=== PATIENT | male | born 1945 | race Caucasian/White ===

== ENCOUNTER → 2020-12-30 | Outpatient (CLI) | payer MEDICARE ==
[2020-12-30 13:58] LABS: INR 0.9 (<1.2); Partial Thromboplastin Time 24.5 sec (22.0-30.0); Prothrombin Time 9.5 sec (9.0-12.0)
[2020-12-30 19:15] LABS: Basophils # (A) 0.08 X 10*3/uL (0.00-0.10); Basophils % (A) 0.8 %; Eosinophils # (A) 0.34 X 10*3/uL (0.04-0.35); Eosinophils % (A) 3.3 %; HCT 34.2 % (39.6-50.0); HGB 10.8 g/dL (13.0-17.0); Lymphocytes # (A) 2.85 X 10*3/uL (0.90-5.00); Lymphocytes % (A) 27.3 %; MCH 32.1 pg (27.0-32.0); MCHC 31.6 g/dL (32.0-37.0); MCV 101.8 fL (80.0-97.0); Monocytes # (A) 1.37 X 10*3/uL (0.20-1.00); Monocytes % (A) 13.1 %; Neutrophils # (A) 5.53 X 10*3/uL (1.80-7.70); Neutrophils % (A) 52.9 %; Platelet Count 263 X 10*3/uL (140-440); RBC 3.36 X 10*6/uL (4.40-5.60); RDW 17.3 % (11.5-14.5); WBC 10.44 X 10*3/uL (4.50-10.00)
[2020-12-30 22:08] LABS: African American GFR (CKD) 23.8 (60.0-200.0); Anion Gap 9.9 mmol/L (4.00-12.00); Carbon Dioxide 20.1 mmol/L (21.6-31.8); Non-African American GFR(CKD) 20.5 (60.0-200.0); Potassium 4.6 mmol/L (3.5-5.5)
== END | disposition home or self-care (01) ==
LOC: LABWHC1 12:53
PROVIDERS: ATTEND Internal Medicine
DX: R80.9 Proteinuria, unspecified (principal)
CPT/HCPCS: 36415; 80051; 82565; 84520; 85025; 85610; 85730

== ENCOUNTER 2021-01-01 08:47 | Day surgery (SDC) | payer MEDICARE ==
[2021-01-01] MEDS ORDERED: ALPRAZolam 0.25 MG TAB PO STA (09:38)
[2021-01-01 10:02] VITALS: PULSE 78; RESP 18; TEMP 97.9
[2021-01-01 10:38] VITALS: BP 160/79
== END 2021-01-01 10:30 | disposition home or self-care (01) ==
LOC: RADPROMAIN 08:47
PROVIDERS: ATTEND Internal Medicine
DX: R80.9 Proteinuria, unspecified (principal)
CPT/HCPCS: 36415; 86850; 86870; 86880; 86900; 86901; 86920

== ENCOUNTER → 2021-01-13 | Outpatient (CLI) | payer MEDICARE ==
[2021-01-13 13:49] LABS: Anisocytosis Slight; Basophils # (A) 0.1 k/uL (0-0.2); Basophils % (A) 1 %; Eosinophils # (A) 0.3 k/uL (0-0.7); Eosinophils % (A) 2 %; HCT 34.4 % (39.0-53.0); HGB 11.7 gm/dL (13.0-17.5); Hyperchromasia Slight; Lymphocytes # (A) 3.9 k/uL (1.0-4.8); Lymphocytes % (A) 34 %; MCH 32.6 pg (25.0-35.0); MCHC 34.1 g/dL (31.0-37.0); MCV 95.7 fL (80.0-100.0); Macrocytosis Slight; Mean Platelet Volume 7.9; Monocytes # (A) 0.7 k/uL (0-1.0); Monocytes % (A) 6 %; Neutrophils # (A) 6.2 k/uL (1.3-7.7); Neutrophils % (A) 53 %; Platelet Count 354 k/uL (150-450); Poikilocytosis Moderate; RBC 3.59 m/uL (4.30-5.90); RDW 17.6 % (11.5-15.5); WBC 11.6 k/uL (3.8-10.6)
[2021-01-13 14:02] LABS: Potassium 4.1 mmol/L (3.5-5.1)
[2021-01-13 14:07] LABS: INR 0.9 (<1.2); Partial Thromboplastin Time 24.2 sec (22.0-30.0); Prothrombin Time 9.5 sec (9.0-12.0)
== END | disposition home or self-care (01) ==
LOC: LABPAT 12:27
PROVIDERS: ATTEND Internal Medicine
DX: R80.9 Proteinuria, unspecified (principal)
CPT/HCPCS: 80051; 82565; 84520; 85025; 85610; 85730

== ENCOUNTER 2021-01-16 08:10 | Day surgery (SDC) | payer MEDICARE ==
[2021-01-16 08:59] VITALS: TEMP 98.4
[2021-01-16] MEDS ORDERED: DESMOPRESSIN ACETATE 32 MCG in SODIUM CHLORIDE 0.9% 50 ML IV ONE (09:15)
--- NOTE | 2021-01-16 13:25 | CT ---
EXAMINATION TYPE: CT biopsy renal LT DATE OF EXAM: 01/16/2021 HISTORY: Proteinuria COMPARISON: Maximal barrier technique was utilized, hand hygiene obtained with soap and water. The skin overlyin g a suitable path to the lower pole left kidney was localized using CT and the overlying skin was pre pped and draped. Lidocaine used for local anesthesia. A skin jarod made with a scalpel. Using CT gu idance, access was gained to the lower pole left renal cortex with a 18-gauge core needle were 17-gau ge guide. Core specimen submitted to cytology. Three pass(es) performed in all. Following the proc edure no immediate complications. The patient is discharged in stable condition. Hemostasis achiev ed. IMPRESSION: SUCCESSFUL CT GUIDED CORE BIOPSY left renal cortex. PATHOLOGY PENDING. THIS PROCEDURE WAS PERFORMED BY THE UNDERSIGNED.
[2021-01-16 14:43] VITALS: RESP 16
[2021-01-16 14:52] VITALS: BP 142/69; PULSE 78
== END 2021-01-16 14:25 | disposition home or self-care (01) ==
LOC: RADPROMAIN 08:10
PROVIDERS: ATTEND Internal Medicine
DX: R80.9 Proteinuria, unspecified (principal)
CPT/HCPCS: 86900; 86901; 86850; 86870; 86880; 50200; 77012; 36415; J2597

== ENCOUNTER 2021-09-08 11:33 | Day surgery (SDC) | payer MEDICARE ==
[~2021-09-08 11:33] MED LIST: ACETAMINOPHEN TAB 500 MG TAB PO PRN; DEXAMETHASONE SOD PHOSPHATE 4 MG/ML 1 ML VIAL IV ONE; HEPARIN SODIUM,PORCINE/PF 5,000 UNIT/0.5 ML SYRINGE SQ PRN; LACTATED RINGERS 1,000 ML IV SCH; LIDOCAINE 1% (10MG/ML) FOR IV START INTRADERMA PRN; ONDANSETRON 4 MG/2 ML VIAL IVP ONE; ONDANSETRON 4 MG/2 ML VIAL IVP PRN; Pre Op ABX Message 1 EACH MISC MISCELLANE ONE; fentaNYL (PF) 50 MCG/ML 2 ML AMP IV PRN
[2021-09-08] MEDS ORDERED: SODIUM CHLORIDE 0.9% 1,000 ML IV ONE (12:51)
--- NOTE | 2021-09-08 12:55 | P.GSHP ---
History of Present Illness H&P Date: 09/15/21 Chief Complaint: Renal failure 76-year-old male known to our service. Patient was last seen a few months ago. Patient with progressive renal failure. GFR down to 13. Patient is having more symptoms from his renal failure he states. No significant surgical history. He has not been dialyzed thus far. 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 History of Any Multi-Drug Resistant Organisms: None Reported Past Surgical History: Heart Catheterization With Stent, Joint Replacement, Tonsillectomy Additional Past Surgical History / Comment(s): CATARACT SX-LENS IMPLANTS, BONE MARROW TRANSPLANT, PARTIAL LT KNEE REPLACEMENT, colonscopy Additional Past Anesthesia/Blood Transfusion Reaction / Comment(s): PAST BLOOD TRANSFUSIONS no issues Date of Last Stent Placement:: unknown 40 yrs ago Past Psychological History: No Psychological Hx Reported Smoking Status: Former smoker Past Alcohol Use History: None Reported Additional Past Alcohol Use History / Comment(s): STARTED AT AGE 14, 1PPD, QUIT 2011 Past Drug Use History: None Reported - Past Family History Father Family Medical History: Cancer Additional Family Medical History / Comment(s): AT AGE 42 LUNG CA Mother Family Medical History: Cancer Additional Family Medical History / Comment(s): AT AGE 84- BRAIN CA. Medications and Allergies Home Medications Medication Instructions Recorded Confirmed Type Aspirin 81 mg PO DAILY 12/07/13 09/05/21 History Metoprolol Succinate (ER) [Toprol 100 mg PO DAILY 12/07/13 09/05/21 History XL] Pravastatin Sodium 40 mg PO DAILY 12/07/13 09/05/21 History amLODIPine 10 mg PO DAILY 12/07/13 09/05/21 History Allopurinol [Zyloprim] 300 mg PO DAILY 12/24/20 09/05/21 History Ergocalciferol [Vitamin D2 (1250 1,250 mcg PO QMONTHLY 12/24/20 09/05/21 History Mcg = [id number] Iu)] hydrALAZINE HCL [Apresoline] 100 mg PO TID 12/24/20 09/05/21 History Folic Acid 1 mg PO DAILY 01/10/21 09/05/21 History Furosemide [Lasix] 20 mg PO BID 01/10/21 09/05/21 History Germania(Unkown Dose) 1 dose PO DAILY PRN 09/05/21 History Calcium Acetate 667 mg PO DAILY 09/05/21 09/05/21 History Montelukast [Singulair] 10 mg PO DAILY 09/05/21 09/05/21 History Omeprazole 20 mg PO HS 09/05/21 09/05/21 History Allergies Allergy/AdvReac Type Severity Reaction Status Date / Time vancomycin Allergy Rash/Hives Verified 09/04/21 15:59 Surgical - Exam Physical exam: General: Well-developed, well-nourished HEENT: Normocephalic, sclerae nonicteric Abdomen: Nontender, nondistended Extremities: No edema Neuro: Alert and oriented Assessment and Plan (1) Renal failure Narrative/Plan: 76-year-old male with renal failure. We'll proceed with peritoneal dialysis catheter placement. Risks of bleeding, infection, scarring, catheter malfunction, bladder and bowel injury, need for laparoscopy, anesthesia related complications reviewed. He understands and wishes to proceed. Current Visit: Yes Status: Acute Code(s): N19 - UNSPECIFIED KIDNEY FAILURE SNOMED Code(s): 67289711
[2021-09-08 13:03] LABS: Albumin 4.2 g/dL (3.5-5.0); Total Bilirubin 0.5 mg/dL (0.2-1.3); Total Protein 6.8 g/dL (6.3-8.2)
[2021-09-08 13:08] LABS: Potassium 5.2 mmol/L (3.5-5.1)
[2021-09-08 13:15] LABS: Anisocytosis Slight; Basophils # (A) 0.1 k/uL (0-0.2); Basophils % (A) 1 %; Eosinophils # (A) 0.4 k/uL (0-0.7); Eosinophils % (A) 3 %; HCT 34.1 % (39.0-53.0); HGB 10.5 gm/dL (13.0-17.5); Lymphocytes # (A) 4.4 k/uL (1.0-4.8); Lymphocytes % (A) 37 %; MCH 29.6 pg (25.0-35.0); MCHC 30.8 g/dL (31.0-37.0); MCV 96.2 fL (80.0-100.0); Monocytes # (A) 0.8 k/uL (0-1.0); Monocytes % (A) 7 %; Neutrophils % (A) 49 %; Platelet Count 249 k/uL (150-450); RBC 3.54 m/uL (4.30-5.90); RDW 16.6 % (11.5-15.5); WBC 12.1 k/uL (3.8-10.6)
[2021-09-08] MEDS ORDERED: MIDAZOLAM 2 MG/2 ML VIAL ONE (13:19)
[2021-09-08] MEDS ORDERED: LIDOCAINE 2% INJ 20 MG/ML (2 ML VIAL) ONE (13:19)
[2021-09-08] MEDS ORDERED: PROPOFOL 10 MG/ML 20 ML VIAL IV ONE (13:19)
[2021-09-08] MEDS ORDERED: fentaNYL (PF) 50 MCG/ML 2 ML AMP ONE (13:19)
[2021-09-08] MEDS ORDERED: BUPIVACAINE (PF) 0.5% 30 ML VIAL SQ ONE ×2 (13:27→13:41)
[2021-09-08] MEDS ORDERED: MINERAL OIL 1 APPLIC/ML OIL MISCELLANE ONE ×2 (13:28→13:41)
[2021-09-08] MEDS ORDERED: NALOXONE 0.4 MG/ML 1 ML VIAL IV PRN (14:04)
[2021-09-08] MEDS ORDERED: traMADol 50 MG TAB PO PRN (14:04)
--- NOTE | 2021-09-08 14:06 | P.OP ---
Date of Procedure: 09/08/21 Procedure(s) Performed: PREOPERATIVE DIAGNOSIS: Renal failure POSTOPERATIVE DIAGNOSIS: Same PROCEDURE: Peritoneal dialysis catheter insertion SURGEON: Catherine EBL: Minimal ANESTHESIA: Sedation plus local COMPLICATIONS: None OPERATIVE PROCEDURE: The patient was placed in the operative table in the supine position. The abdomen was prepped and draped in usual sterile fashion. A small vertical incision was made in the right periumbilical location. Dissection down through the subcutaneous tissues took place using electrocautery. The anterior rectus was divided vertically using the scalpel. The rectus was bluntly. The posterior rectus was visualized. An 0 Vicryl pursestring was placed. A small opening in the posterior rectus fascia and peritoneum took place using a Metzenbaum scissors. There were no adhesions to the suture that was placed. The pigtail catheter was advanced into the pelvis over a stylette. No resistance was met. The inner cuff was secured to the fascia using the 0 Vicryl pursestring that was placed. The catheter was tunneled to an exit site in the right lateral lower quadrant. The catheter was connected to the 1 L bag of saline and approximated 800 mL of saline was easily introduced into the peritoneal cavity. The fluid was then allowed to evacuate. The majority of the fluid was returned. The anterior rectus fascia was then reapproximated using a running 0 Vicryl stitch. The subcutaneous tissues reprepped using 3-0 Vicryl sutures and the skin using 4-0 Monocryl sutures. The outpatient dialysis adapter was applied to the end of the catheter. Sterile dressings were then applied after skin glue was placed over the incision. DISPOSITION: Stable to recovery room
[2021-09-08 14:20] VITALS: TEMP 96.8
[2021-09-08 15:45] VITALS: BP 158/80; PULSE 62; RESP 16
== END 2021-09-08 16:00 | disposition home or self-care (01) ==
LOC: OR 11:33
PROVIDERS: ATTEND Surgery
DX: N19 Unspecified kidney failure (principal); I25.10 Atherosclerotic heart disease of native coronary artery without angina pectoris; E78.5 Hyperlipidemia, unspecified; I10 Essential (primary) hypertension; K76.9 Liver disease, unspecified; M10.9 Gout, unspecified; M19.90 Unspecified osteoarthritis, unspecified site; C95.91 Leukemia, unspecified, in remission; D64.9 Anemia, unspecified; E66.9 Obesity, unspecified; Z68.32 Body mass index [BMI] 32.0-32.9, adult; Z94.81 Bone marrow transplant status; Z87.01 Personal history of pneumonia (recurrent); Z86.19 Personal history of other infectious and parasitic diseases; Z98.49 Cataract extraction status, unspecified eye; Z96.1 Presence of intraocular lens; Z96.652 Presence of left artificial knee joint; Z87.891 Personal history of nicotine dependence; Z79.82 Long term (current) use of aspirin; Z79.899 Other long term (current) drug therapy; Z88.1 Allergy status to other antibiotic agents; Z98.890 Other specified postprocedural states; Z83.3 Family history of diabetes mellitus; Z80.1 Family history of malignant neoplasm of trachea, bronchus and lung; Z82.49 Family history of ischemic heart disease and other diseases of the circulatory system; Z80.8 Family history of malignant neoplasm of other organs or systems
CPT/HCPCS: 80053; 85025; 49421; C1752; J2250; J1100; J2405; J3010; J2704; J1644; J2001

== ENCOUNTER → 2022-04-17 | Outpatient (CLI) | payer MEDICARE ==
--- NOTE | 2022-04-17 11:14 | CTL ---
EXAMINATION TYPE: CT Low Dose Lung DATE OF EXAM ORDERED: 04/17/2022 HISTORY: . Lung cancer screening CT DLP: 143.[address] CTDI: 3.70 mGy Automated exposure control for dose reduction was used. SCREENING VISIT: COMPARISON: 12/10/2013 TECHNIQUE: Low dose computed tomography scan was performed through the chest at 1 mm thick sections a nd reconstructed images in multiple planes at 1 mm and [address] DIAGNOSTIC QUALITY: Satisfactory FINDINGS: LUNGS: The lungs are clear and free of infiltrate or atelectasis. There is a calcified nodule seen superior segment right lower lobe measuring 2 mm compatible small gr anuloma axial image 146. There is a linear calcific density seen in the right lung apex axial image 76 measuring 6 mm. There is a 2 mm calcified granuloma right upper lobe axial image 116. Mild emphysematous changes seen. Minimal posterior groundglass changes most typical of atelectasis. There is atherosclerotic change in the aorta, cardiomegaly and coronary artery dense calcification. Incidental note is made of small amount of ascites adjacent to the liver. A fat-containing density se en within gastric body could represent a small lipoma. This very mild interlobular septal thickening at the lung bases suggestive of mild chronic interstitial lung disease or fibrosis Pleural effusion or pneumothorax. Thoracic aorta is of normal caliber. The heart is not enlarged. No evidence for mediastinal mass or a denopathy. Calcified lymph nodes seen. IMPRESSION: 1. COPD with subcentimeter calcified benign-appearing pulmonary nodules most typical of granuloma. 2. There is a small amount of ascites correlate clinically for etiology. 3. Coronary artery calcification. 4. 2.1 cm fat attenuation within the gastric body could represent gastric content or gastric lipoma. CT LUNG RAD AND CT CHEST RECOMMENDATION: Lung-Rad 2 Benign Appearance or Behavior: Continue annual sc reening with LDCT in 12 months. S Modifier (other clinically significant findings): S
== END | disposition home or self-care (01) ==
LOC: RADCTMAIN 09:08
PROVIDERS: ATTEND Family Medicine
DX: Z12.2 Encounter for screening for malignant neoplasm of respiratory organs (principal); J44.9 Chronic obstructive pulmonary disease, unspecified; I25.10 Atherosclerotic heart disease of native coronary artery without angina pectoris; R18.8 Other ascites; Z87.891 Personal history of nicotine dependence
CPT/HCPCS: 71271

== ENCOUNTER → 2022-09-23 | Outpatient (CLI) | payer MEDICARE ==
--- NOTE | 2022-09-23 19:37 | CT ---
EXAMINATION TYPE: CT sinus wo con DATE OF EXAM: 09/23/2022 COMPARISON: None HISTORY: 77-year-old male K32.9, chronic sinusitis CT DLP: 709.80 mGycm Automated exposure control for dose reduction was used. TECHNIQUE: Noncontrast axial views of the paranasal sinuses were obtained. Coronal and sagittal refor matted images were obtained. FINDINGS: PARANASAL SINUSES: Scattered mild to moderate mucosal thickening throughout the ethmoid air cells. Air-fluid levels within the bilateral maxillary sinuses. Sphenoid and frontal sinuses are well pneumatized. Reactive damion- osteogenesis is not seen. There is no destruction of the osseous kowalski of the paranasal sinuses. THE NASAL CAVITY: The osteomeatal complexes are patent. There is some rightward nasal septal deviation. The imaged brain shows mild cerebral cortical volume loss and mild to moderate periventricular burden of chronic small vessel ischemic disease. The orbits are normal in appearance. Mastoid air cells and middle ear cavities are well pneumatized. Reformatted images confirm above findings. IMPRESSION: 1. Mild to moderate chronic ethmoid and maxillary sinus disease but with superimposed bilateral maxil fredis sinus air fluid levels which can be seen with acute sinusitis. 2. Rightward nasal septal deviation.
== END | disposition home or self-care (01) ==
LOC: RADCTMAIN 14:18
PROVIDERS: ATTEND Family Medicine
DX: S02.92XB Unspecified fracture of facial bones, initial encounter for open fracture (principal); J32.2 Chronic ethmoidal sinusitis; J32.0 Chronic maxillary sinusitis; J34.2 Deviated nasal septum
CPT/HCPCS: 70486

== ENCOUNTER 2022-11-13 06:23 | Emergency (ER) | payer MEDICARE ==
[2022-11-13] MEDS ORDERED: PANTOPRAZOLE 40 MG/10 ML VIAL IVP STA (06:50)
--- NOTE | 2022-11-13 06:51 | ED ---
GI Bleed HPI - General Chief complaint: GI Bleed Stated complaint: Rectal Bleeding Time Seen by Provider: 11/13/22 06:27 Source: patient, RN notes reviewed Mode of arrival: wheelchair Limitations: no limitations - History of Present Illness Initial comments: This is a 77-year-old male who presents to the emergency department for rectal bleeding. Patient states that he felt like he needed to have a bowel movement this morning around midnight, and when he got up to use the bathroom, he noticed bright red blood in the toilet. States that this has since persisted all morning. Reports generalized lower abdominal pain. Denies any history of rectal bleeds. He felt nauseous earlier, however that has since resolved. He does report feeling very weak, lightheaded, and drowsy. Patient is on peritoneal dialysis, which he started a year ago. States that he does this at night. Not taking any blood thinners. Denies any fevers, chills, sore throat, cough, dyspnea, chest pain, palpitations, vomiting, diarrhea, back pain, or headaches. MD complaint: gross hematochezia - Related Data Home Medications Medication Instructions Recorded Confirmed Metoprolol Succinate (ER) [Toprol 100 mg PO DAILY 12/07/13 11/13/22 XL] Pravastatin Sodium 40 mg PO HS 12/07/13 11/13/22 amLODIPine 10 mg PO DAILY 12/07/13 11/13/22 Calcium Acetate 667 mg PO AC-TID 09/05/21 11/13/22 Montelukast [Singulair] 10 mg PO HS 09/05/21 11/13/22 Omeprazole 20 mg PO DAILY 09/05/21 11/13/22 Fluticasone/Umeclidin/Vilanter 1 puff INHALATION RT-DAILY 11/13/22 11/13/22 [Trelegy Ellipta 200-62.5-25] Sodium Bicarbonate Tab 650 mg PO BID 11/13/22 11/13/22 Torsemide [Demadex] 40 mg PO DAILY 11/13/22 11/13/22 allopurinoL 100 mg PO DAILY 11/13/22 11/13/22 hydrALAZINE HCL [Apresoline] 50 mg PO BID 11/13/22 11/13/22 Allergies Allergy/AdvReac Type Severity Reaction Status Date / Time vancomycin Allergy Rash/Hives Verified 08/11/23 08:44 Review of Systems ROS Statement: Those systems with pertinent positive or pertinent negative responses have been documented in the HPI. ROS Other: All systems not noted in ROS Statement are negative. 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 peritineal dialysis, History of Any Multi-Drug Resistant Organisms: None Reported Past Surgical History: Heart Catheterization With Stent, Joint Replacement, Tonsillectomy Additional Past Surgical History / Comment(s): CATARACT SX-LENS IMPLANTS, BONE MARROW TRANSPLANT, PARTIAL LT KNEE REPLACEMENT, colonscopy Additional Past Anesthesia/Blood Transfusion Reaction / Comment(s): PAST BLOOD TRANSFUSIONS no issues Date of Last Stent Placement:: unknown 40 yrs ago Past Psychological History: No Psychological Hx Reported Smoking Status: Former smoker Past Alcohol Use History: None Reported Past Drug Use History: None Reported - Past Family History Father Family Medical History: Cancer Additional Family Medical History / Comment(s): AT AGE 42 LUNG CA Mother Family Medical History: Cancer Additional Family Medical History / Comment(s): AT AGE 84- BRAIN CA. General Exam Limitations: no limitations General appearance: alert, in no apparent distress Head exam: Present: atraumatic, normocephalic, normal inspection Respiratory exam: Present: normal lung sounds bilaterally. Absent: respiratory distress, wheezes, rales, rhonchi, stridor Cardiovascular Exam: Present: regular rate, normal rhythm, normal heart sounds. Absent: systolic murmur, diastolic murmur, rubs, gallop, clicks Rectal exam: Present: other (There is no active bleeding from the rectum, however the buttocks is diffusely covered in fresh blood suggestive of recent ac tive bleeding. 1 external hemorrhoid) Neurological exam: Present: alert, oriented X3, CN II-XII intact Psychiatric exam: Present: normal affect, normal mood Skin exam: Present: warm, dry, intact, normal color. Absent: rash Course Vital Signs 11/13/22 11/13/22 11/13/22 06:28 06:46 06:51 Temperature 98.2 F Pulse Rate 93 78 Respiratory 18 18 Rate Blood Pressure 83/56 82/53 96/55 O2 Sat by Pulse 98 94 L Oximetry 11/13/22 11/13/22 11/13/22 07:00 07:13 07:30 Temperature Pulse Rate 75 74 59 L Respiratory 18 16 18 Rate Blood Pressure 82/56 94/47 97/46 O2 Sat by Pulse 97 100 97 Oximetry 11/13/22 11/13/22 11/13/22 07:46 08:21 09:03 Temperature Pulse Rate 76 82 89 Respiratory 16 16 16 Rate Blood Pressure 104/61 100/69 103/64 O2 Sat by Pulse 97 94 L 97 Oximetry 11/13/22 10:03 Temperature Pulse Rate 86 Respiratory 16 Rate Blood Pressure 94/59 O2 Sat by Pulse 96 Oximetry Medical Decision Making - Medical Decision Making This is a 77-year-old male who presents to the emergency department for rectal bleeding. Was pt. sent in by a medical professional or institution? @ -No Did you speak to anyone other than the patient for history? @ -No Did you review nursing and triage notes? @ -Yes, and I agree, it is accurate with regards to the patient's symptoms. Were old charts reviewed? @ -No Differential Diagnosis? @ -Differential GI Bleed: Esophageal varices, aortoenteric fistula, [place], gastritis, peptic ulcer disease, diverticulosis, inflammatory bowel disease, hemorrhoids, fissure, colitis, malignancy, Meckels diverticulum, this is not meant to be an all- inclusive list. EKG interpreted by me (3pts min.)? @ -EKG interpreted by me demonstrating the following: Sinus rhythm. Ventricular rate 78 beats per minute, SC interval 178 ms, QRS duration 91 ms, QTC 448 ms. X-rays interpreted by me (1pt min.)? @ -Not obtained CT interpreted by me (1pt min.)? @ -Not obtained U/S interpreted by me (1pt. min.)? @ -Not obtained What testing was considered but not performed? (CT, X-rays, U/S, labs)? Why? @ -None What meds were considered but not given? Why? @ -None Did you discuss the management of the patient with other professionals? @ -Yes, Dr. Davis, general surgery who advised transfer for GI services. Dr. Griffiths, GI at [facility], who is agreeable to transfer. Dr. Smith is the accepting ED provider. Did you reconcile home meds? @ -No Was smoking cessation discussed for >3mins.? @ -No Was critical care preformed (if so, how long)? @ -No Were there social determinants of health that impacted care today? How? (Homelessness, low income, unemployed, alcoholism, drug addiction, transportation, low edu. Level, literacy, decrease access to med. care, [facility], rehab)? @ -No Was there de-escalation of care discussed even if they declined? (Discuss DNR or withdrawal of care, Hospice)? @ -No What co-morbidities impacted this encounter? (DM, HTN, Smoking, COPD, CAD, Cancer, CVA, Hep., AIDS, mental health diagnosis, sleep apnea, morbid obesity)? @ -CAD, HTN, HLD, renal disease Was patient admitted / discharged? @ -Transferred. Patient was fairly hypotensive in the emergency department with most of his blood pressures in the 80s/50s. He did have some fresh blood on exam and on a gloved finger during digital rectal exam. Initial hemoglobin was 10.7 and the patient also had leukocytosis. Renal failure is consistent with the patient being on peritoneal dialysis. Given the progressive hypotension, he was given a liter bolus of IV fluids. Blood pressure did improve into the 100s systolically, however after about an hour, it started to go back down into the 80s to 90s. We rechecked his hemoglobin after 2 hours, and it was found to be 8.9. Patient also started to have active bleeding again. Given the decreased hemoglobin with associated hypotension, we were going to transfuse 1 unit of PRBCs, however the patient had antibodies and it was going to be hours before he could receive the blood. He was subsequently transferred before receiving the unit. I spoke with Dr. Davis, general surgery, who advised transferring the patient out for higher level of care, as we do not have gastroenterology available at our facility. Case discussed with Dr. Griffiths, GI at [facility], who is agreeable to transfer. Dr. Smith is the accepting provider for ED to ED transfer. Undiagnosed new problem with uncertain prognosis? @ -None Drug Therapy requiring intensive monitoring for toxicity (Heparin, Nitro, Insulin, Cardizem)? @ -None Were any procedures done? @ -None Diagnosis/symptom? @ -GI bleed, hypotension Acute, or Chronic, or Acute on Chronic? @ -Acute Uncomplicated (without systemic symptoms) or Complicated (systemic symptoms)? @ -Complicated Side effects of treatment? @ -None Exacerbation, Progression, or Severe Exacerbation] @ -Not applicable Poses a threat to life or bodily function? @ -Yes This case was discussed in detail with the attending ED physician, Dr. Ulrich. Pr esentation, findings, and treatment plan discussed in detail as well. - Lab Data Result diagrams: 11/13/22 08:57 11/13/22 06:46 Lab Results 11/13/22 11/13/22 11/13/22 Range/Units 06:46 06:46 06:46 WBC 17.4 H (3.8-10.6) k/uL RBC 3.33 L (4.30-5.90) m/uL Hgb 10.7 L (13.0-17.5) gm/dL Hct 32.4 L (39.0-53.0) % MCV 97.3 (80.0-100.0) fL MCH 32.0 (25.0-35.0) pg MCHC 32.9 (31.0-37.0) g/dL RDW 16.1 H (11.5-15.5) % Plt Count 345 (150-450) k/uL MPV 7.8 Neutrophils % (Manual) 38 % Band Neuts % (Manual) 4 % Lymphocytes % (Manual) 45 % Monocytes % (Manual) 10 % Eosinophils % (Manual) 1 % Basophils % (Manual) % Metamyelocytes % 2 % Myelocytes % 2 % Neutrophils # (Manual) 7.30 (1.3-7.7) k/uL Lymphocytes # (Manual) 7.83 H (1.0-4.8) k/uL Monocytes # (Manual) 1.74 H (0-1.0) k/uL Eosinophils # (Manual) 0.17 (0-0.7) k/uL Basophils # (Manual) (0-0.2) k/uL Metamyelocytes # (Man) 0.35 H (0) k/uL Myelocytes # (Manual) 0.35 H (0) k/uL Nucleated RBCs 1 H (0-0) /100 WBC Manual Slide Review Performed Polychromasia Present Hypochromasia Slight Poikilocytosis (manual Present Anisocytosis Slight Macrocytosis Slight [place] Bodies Present PT 9.8 (9.0-12.0) sec INR 0.9 (<1.2) APTT 25.6 (22.0-30.0) sec Sodium 142 (137-145) mmol/L Potassium 4.6 (3.5-5.1) mmol/L Chloride 105 (98-107) mmol/L Carbon Dioxide 23 (22-30) mmol/L Anion Gap 14 mmol/L BUN 52 H (9-20) mg/dL Creatinine 5.71 H (0.66-1.25) mg/dL Est GFR (CKD-EPI)AfAm 10 (>60 ml/min/1.73 sqM) Est GFR (CKD-EPI)NonAf 9 (>60 ml/min/1.73 sqM) Glucose 180 H (74-99) mg/dL Calcium 8.7 (8.4-10.2) mg/dL Magnesium 1.5 L (1.6-2.3) mg/dL Total Bilirubin 0.3 (0.2-1.3) mg/dL AST 19 (17-59) U/L ALT 19 (4-49) U/L Alkaline Phosphatase 92 (38-126) U/L Total Protein 5.9 L (6.3-8.2) g/dL Albumin 3.5 (3.5-5.0) g/dL Blood Type Blood Type Recheck Bld Type Recheck Status Antibody Screen Antibody Identification Direct Antiglob Test Crossmatch Spec Expiration Date 11/13/22 11/13/22 Range/Units 06:46 08:57 WBC 15.1 H (3.8-10.6) k/uL RBC 2.80 L (4.30-5.90) m/uL Hgb 8.9 L D (13.0-17.5) gm/dL Hct 27.4 L (39.0-53.0) % MCV 98.0 (80.0-100.0) fL MCH 31.7 (25.0-35.0) pg MCHC 32.4 (31.0-37.0) g/dL RDW 16.2 H (11.5-15.5) % Plt Count 316 (150-450) k/uL MPV 8.0 Neutrophils % (Manual) 57 % Band Neuts % (Manual) 4 % Lymphocytes % (Manual) 28 % Monocytes % (Manual) 8 % Eosinophils % (Manual) 1 % Basophils % (Manual) 1 % Metamyelocytes % 3 % Myelocytes % 1 % Neutrophils # (Manual) 9.20 H (1.3-7.7) k/uL Lymphocytes # (Manual) 4.23 (1.0-4.8) k/uL Monocytes # (Manual) 1.21 H (0-1.0) k/uL Eosinophils # (Manual) 0.15 (0-0.7) k/uL Basophils # (Manual) 0.15 (0-0.2) k/uL Metamyelocytes # (Man) 0.45 H (0) k/uL Myelocytes # (Manual) 0.15 H (0) k/uL Nucleated RBCs 1 H (0-0) /100 WBC Manual Slide Review Performed Polychromasia Present Hypochromasia Slight Poikilocytosis (manual Present Anisocytosis Slight Macrocytosis Slight [place] Bodies Present PT (9.0-12.0) sec INR (<1.2) APTT (22.0-30.0) sec Sodium (137-145) mmol/L Potassium (3.5-5.1) mmol/L Chloride (98-107) mmol/L Carbon Dioxide (22-30) mmol/L Anion Gap mmol/L BUN (9-20) mg/dL Creatinine (0.66-1.25) mg/dL Est GFR (CKD-EPI)AfAm (>60 ml/min/1.73 sqM) Est GFR (CKD-EPI)NonAf (>60 ml/min/1.73 sqM) Glucose (74-99) mg/dL Calcium (8.4-10.2) mg/dL Magnesium (1.6-2.3) mg/dL Total Bilirubin (0.2-1.3) mg/dL AST (17-59) U/L ALT (4-49) U/L Alkaline Phosphatase (38-126) U/L Total Protein (6.3-8.2) g/dL Albumin (3.5-5.0) g/dL Blood Type A Negative Blood Type Recheck A Neg Bld Type Recheck Status No Antibody Screen POSITIVE Antibody Identification Anti-D Direct Antiglob Test Negative Crossmatch See Detail Spec Expiration Date 11/16/20222345 Disposition Clinical Impression: GI bleed, Hypotension Disposition: OTHER INSTITUTION NOT DEFINED Referrals: Malachi Hager MD [Primary Care Provider] - 1-2 days - Out of Hospital Transfer - Req. Specs Out of Hospital Transfer - Requested Specifics: Other [facility] ([facility]
[2022-11-13 07:02] LABS: Anisocytosis Slight; HCT 32.4 % (39.0-53.0); HGB 10.7 gm/dL (13.0-17.5); Hypochromasia Slight; MCHC 32.9 g/dL (31.0-37.0); MCV 97.3 fL (80.0-100.0); Macrocytosis Slight; Mean Platelet Volume 7.8; Platelet Count 345 k/uL (150-450); RBC 3.33 m/uL (4.30-5.90); RDW 16.1 % (11.5-15.5)
[2022-11-13 07:06] LABS: ALT 19 U/L (4-49); AST 19 U/L (17-59); African American GFR (CKD) 10 (>60 ml/min/1.73 sqM); Albumin 3.5 g/dL (3.5-5.0); Alkaline Phosphatase 92 U/L (38-126); Anion Gap 14 mmol/L; Blood Urea Nitrogen 52 mg/dL (9-20); Calcium 8.7 mg/dL (8.4-10.2); Carbon Dioxide 23 mmol/L (22-30); Chloride 105 mmol/L (98-107); Glucose 180 mg/dL (74-99); Magnesium 1.5 mg/dL (1.6-2.3); Non-African American GFR(CKD) 9 (>60 ml/min/1.73 sqM); Potassium 4.6 mmol/L (3.5-5.1); Sodium 142 mmol/L (137-145); Total Bilirubin 0.3 mg/dL (0.2-1.3); Total Protein 5.9 g/dL (6.3-8.2)
[2022-11-13 07:16] LABS: INR 0.9 (<1.2); Partial Thromboplastin Time 25.6 sec (22.0-30.0); Prothrombin Time 9.8 sec (9.0-12.0)
[2022-11-13] MEDS ORDERED: SODIUM CHLORIDE 0.9% 1,000 ML IV STA (07:42)
[2022-11-13 07:46] VITALS: RESP 16
[2022-11-13 08:49] LABS: Band Neutrophils % 4 %; Eosinophils # (M) 0.17 k/uL (0-0.7); Lymphocytes # (M) 7.83 k/uL (1.0-4.8); Metamyelocytes # (M) 0.35 k/uL (0); Metamyelocytes % 2 %; Monocytes # (M) 1.74 k/uL (0-1.0); Myelocytes # (M) 0.35 k/uL (0); Myelocytes % 2 %; Neutrophils % (M) 38 %; Nucleated Red Blood Cells 1 /100 WBC (0-0); Total Cells Counted 200; WBC 17.4 k/uL (3.8-10.6)
[2022-11-13 08:57] LABS: Polychromasia Present
[2022-11-13 08:59] LABS: Howell-Jolly Bodies Present; Poikilocytosis (M) Present
[2022-11-13 09:15] LABS: Anisocytosis Slight; HCT 27.4 % (39.0-53.0); HGB 8.9 gm/dL (13.0-17.5); Hypochromasia Slight; MCH 31.7 pg (25.0-35.0); MCHC 32.4 g/dL (31.0-37.0); Macrocytosis Slight; Platelet Count 316 k/uL (150-450); RDW 16.2 % (11.5-15.5)
[2022-11-13] MEDS ORDERED: MORPHINE SULFATE 4 MG/ML SYRINGE IVP STA (09:25)
[2022-11-13 10:03] VITALS: BP 94/59
[2022-11-13 10:58] LABS: Band Neutrophils % 4 %; Basophils # (M) 0.15 k/uL (0-0.2); Eosinophils # (M) 0.15 k/uL (0-0.7); Lymphocytes # (M) 4.23 k/uL (1.0-4.8); Metamyelocytes # (M) 0.45 k/uL (0); Metamyelocytes % 3 %; Monocytes # (M) 1.21 k/uL (0-1.0); Myelocytes # (M) 0.15 k/uL (0); Myelocytes % 1 %; Neutrophils % (M) 57 %; Nucleated Red Blood Cells 1 /100 WBC (0-0); Total Cells Counted 200; WBC 15.1 k/uL (3.8-10.6)
[2022-11-13 11:02] LABS: Howell-Jolly Bodies Present; Poikilocytosis (M) Present; Polychromasia Present
[2022-11-13 12:06] VITALS: PULSE 85; TEMP 97.8
== END 2022-11-13 12:05 | disposition other institution (70) ==
LOC: EC 06:23
DX: K92.2 Gastrointestinal hemorrhage, unspecified (principal); I95.9 Hypotension, unspecified; I25.10 Atherosclerotic heart disease of native coronary artery without angina pectoris; I10 Essential (primary) hypertension; E78.5 Hyperlipidemia, unspecified; Z87.891 Personal history of nicotine dependence; Z88.8 Allergy status to other drugs, medicaments and biological substances; Z79.899 Other long term (current) drug therapy
CPT/HCPCS: 36415; 93005; 86900; 86901; 80053; 83735; 85025; 85610; 85730; 86850; 86870; 86880; 99285; 96374; 96361 ×2; C9113